=== PATIENT | female | born 1995 | race African-American/Black ===

== ENCOUNTER 2019-09-23 12:48 | Emergency (ER) | payer MEDICAID ==
[~2019-09-23] VITALS: Ht 160 cm; Wt 73.0 kg
[2019-09-23 16:03] VITALS: BP 122/81
== END 2019-09-23 16:04 | disposition home or self-care (01) ==
LOC: ER 12:48
DX: J06.9 Acute upper respiratory infection, unspecified (principal); F12.10 Cannabis abuse, uncomplicated
CPT/HCPCS: 99283